=== PATIENT | female | born 1945 | race Caucasian/White ===

== ENCOUNTER → 2018-12-14 12:34 | Outpatient (CLI) | payer MEDICARE, OTHER, SELFPAY ==
--- NOTE | 2018-12-14 12:40 | DI.CT.S_ITS ---
PROCEDURE: CT CHEST WO CON INDICATIONS: pulmonary nodule surveilance TECHNIQUE: Noncontrast 2.0-2.5 mm thick sections acquired from the pulmonary apices to the posterior costophrenic angles. 7 mm thick coronal and sagittal MIP reformats were then acquired. A low radiation dose technique was utilized. COMPARISON: [facility], CT, THORAX WITHOUT CONTRAST, 02/27/2017, 14:47. [facility], CT, THORAX WITHOUT CONTRAST, 08/30/2017, 9:28. FINDINGS: Image quality: Diagnostic, given the low radiation dose technique. Lungs and pleura: There is redemonstration of largely groundglass 1.9 x 1.3 cm anterior left upper lobe pulmonary nodule. There is slight increase in attenuation since the prior study although the overall size is probably unchanged dating back to 02/27/17. No acute consolidation. Scattered subsegmental atelectasis and/or scarring. No pleural effusion or pneumothorax. Central airways appear grossly patent. Calcified granuloma in the left posterior sulcus, unchanged. 2 mm left upper lobe pulmonary nodule image 37 series 3 is unchanged and requires no further followup Mediastinum: Heart size is normal. Coronary artery calcifications are present. . No pericardial effusion. No mediastinal adenopathy by size criteria. Thoracic aorta and central pulmonary arteries are normal in size. Esophagus is normal in caliber. No hiatal hernia. Bones and chest wall: Partially visualized low attenuation nodule seen in the region of the right adrenal gland possibly an adenoma although not entirely included on the study technically indeterminate. Chronic left clavicle fracture. Calcific tendinitis seen in the left shoulder. Abdomen: Visualized upper abdomen solid organs and bowel loops appear normal in the absence of contrast. IMPRESSION: Overall, stable size of groundglass attenuation nodule involving the anterior left upper lobe. There is apparent slight increase in attenuation however this could be due to slice registration artifact, technically non-specific. Recommend continued surveillance with noncontrast chest CT in one year per consensus recommendations. (Indolent adenocarcinoma still cannot be excluded) Fleischner Society criteria for SUB-SOLID lung nodule followup. Solitary pure ground-glass nodules<6 mm (ground glass or part solid)No followup needed. 6 mm or larger (ground glass)CT at 6-12 months to confirm persistence, then CT every 2 years until 5 years.6 mm or larger (part solid)CT at 3-6 months to confirm persistence, then annual CT until 5 years if unchanged and solid component remains <6 mm. Multiple sub-solid nodules<6 mmCT at 3-6 months, then CT consider at 2 & 4 years for high risk patients. [address] at 3-6 months. Subsequent management based on most suspicious lesions. Recommendations do not apply to lung cancer screening, patients with immunosuppression, or patients with known primary cancer. Dictated by: Jacky Gonsalves M.D. on 12/14/2018 at 14:25 Approved by: Jacky Gonsalves M.D. on 12/14/2018 at 14:39
--- NOTE | 2018-12-14 12:40 | DI.CT.S_ITS ---
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 Additional oblique axial 3.0 mm sections acquired through the pharynx. 3 mm thick coronal and sagittal reformats were generated. For radiation dose reduction, the following was used: automated exposure control. COMPARISON: [facility], CT, SOFT TISSUE NECK W CONTRAST, 11/24/2016, 15:52. [facility], CT, CT CHEST WO CON, 12/14/2018, 12:45. FINDINGS: Image quality: Excellent. Lymph nodes: No enlarged lymph nodes seen throughout the neck. Vessels: Visualized vasculature appears patent. Neck spaces: Just inferior to the hyoid bone on the left, there is a low-density structure seen with an internal density is 61 Hounsfield units, with mass effect upon the hyoid bone itself, elevating it. This structure measures up to 1.9 cm transversely by 1.1 cm AP, with a craniocaudal extent of 1.5 cm. Overall, this is slightly smaller in size than on the prior examination. No new lesions can be seen. The oropharynx, nasopharynx, and pharynx demonstrate no mucosal lesions. The vocal cords, false vocal cords, pyriform sinuses, epiglottis, vallecula, and tongue base all appear normal. Glands: The parotid and submandibular glands appear normal. Thyroid gland demonstrates no significant CT abnormality. Miscellaneous: Visualized brain and orbits appear normal. Mild centrilobular emphysematous changes can be seen at the lung apices. There is a stable amount of groundglass opacity seen involving the left upper lobe anteriorly and laterally, which has not significantly changed in 2 years time since the 11/24/16 examination. Superficial soft tissues appear normal. Bones: No suspicious bony lesions. Visualized sinuses and mastoids appear unremarkable. IMPRESSION: There is a low-density ovoid supraglottic lesion seen on the left, which is smaller in size than in 2017. 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 Within the left upper lobe laterally, there is a subpleural focus of groundglass opacity. This has not changed in 2 years since the prior chest CT and is considered to be benign. Dictated by: Tommie Sandoval M.D. on 12/14/2018 at 12:18 Approved by: Tommie Sandoval M.D. on 12/14/2018 at 12:23
== END ==
PROVIDERS: Family Provider Family Medicine; PCP Family Medicine; Visit Provider Family Medicine
DX: R91.1 Solitary pulmonary nodule (principal); Q31.3 Laryngocele
CPT/HCPCS: 70491; 71250; Q9967

== ENCOUNTER → 2019-07-08 11:42 | Outpatient (CLI) | payer MEDICARE, OTHER, SELFPAY ==
--- NOTE | 2019-07-08 | DI.MG.S_ITS ---
BILATERAL DIGITAL SCREENING MAMMOGRAM 3D/2D WITH CAD: 07/08/2019 CLINICAL: Routine screening. Comparison is made to exams dated: 06/06/2017 mammogram, 06/03/2016 mammogram, and 05/08/2015 mammogram - [facility]. There are scattered fibroglandular elements in both breasts. Current study was also evaluated with a Computer Aided Detection (CAD) system. There are benign calcifications in both breasts. No significant masses, calcifications, or other findings are seen in either breast. There has been no significant interval change. IMPRESSION: There is no mammographic evidence of malignancy. A 1 year screening mammogram is recommended. This exam was interpreted at Station ID: [id number]. NOTE: For mammograms, a report in lay terms will be sent to the patient. Approximately 15% of breast malignancies will not be visualized mammographically. In the management of a palpable breast mass, a negative mammogram must not discourage biopsy of a clinically suspicious lesion. Electronically Signed By: Yonis guzman/grace:07/08/2019 14:16:49 letter sent: Normal Exam ACR BI-RADS Category 2: Benign Finding(s) 3342F
== END ==
PROVIDERS: PCP Family Medicine; Visit Provider Family Medicine
DX: Z12.31 Encounter for screening mammogram for malignant neoplasm of breast (principal)
CPT/HCPCS: 77063; 77067

== ENCOUNTER → 2020-11-12 11:29 | Outpatient (CLI) | payer MEDICARE, OTHER, SELFPAY ==
[2020-11-12 12:36] LABS: Add Manual Diff / Slide Review NO; Basophils Absolute Auto 100 /uL (0-100); Basophils Percent Auto 1.1 % (0-2); Eosinophils Absolute Auto 100 /uL (0-450); Eosinophils Percent Auto 1.3 % (2-4); Hematocrit 41.1 % (36-46); Hemoglobin 13.8 g/dL (12.0-16.0); Lymphocytes Absolute Auto 1800 /uL (1100-4500); Lymphocytes Percent Auto 31.1 % (25-40); Mean Corpuscular HGB Conc 33.7 % (30-36); Mean Corpuscular Hemoglobin 29.7 PG (26-34); Mean Corpuscular Volume 88.1 fL (80-100); Monocytes Absolute Auto 400 /uL (0-900); Monocytes Percent Auto 6.1 % (3-14); Neutrophils Absolute Auto 3600 /uL (1500-7000); Neutrophils Percent Auto 60.4 % (50-75); Platelet Count 274 X10^3/uL (150-400); Red Blood Cell Count 4.66 X10^6/uL (4.0-5.2); Red Cell Distribution Width 14.5 % (11.6-14.8); White Blood Cell Count 5.9 X10^3/uL (4.5-11.0)
[2020-11-12 13:07] LABS: Hemoglobin A1C% w Est Avg Glu 5.9 % (4.0-6.0)
[2020-11-12 13:13] LABS: Alanine Aminotransferase 21 IU/L (<35); Albumin 4.6 g/dL (3.5-5.0); Albumin Globulin Ratio 1.5 (1.0-2.8); Alkaline Phosphatase 98 U/L (38-126); Aspartate Aminotransferase 28 IU/L (14-36); BUN Creatinine Ratio 28.3 (6-22); Bilirubin Total 0.6 mg/dL (0.2-1.3); Blood Urea Nitrogen 26 mg/dL (7-17); Calcium 9.7 mg/dL (8.4-10.2); Carbon Dioxide 28 mmol/L (22-32); Chloride 96 mmol/L (98-107); Cholesterol 224 mg/dL (140-199); Estimated Glomerular Filt Rate > 60.0 mL/min (>60); Glucose 106 mg/dL (80-110); HDL Cholesterol 59 mg/dL (40-60); HEMOLYSIS < 15 (0-50); LDL Cholesterol Calculated 137 mg/dL (<100); Potassium 4.2 mmol/L (3.4-5.1); Sodium 131 mmol/L (137-145); Total Protein 7.6 g/dL (6.3-8.2); Triglycerides 141 mg/dL (35-150)
[2020-11-12 15:56] LABS: TSH w/ Reflex to FT4 1.62 uIU/mL (0.47-4.68)
== END ==
PROVIDERS: PCP Family Medicine; Referring Provider Family Medicine; Visit Provider Family Medicine
DX: E78.5 Hyperlipidemia, unspecified (principal); I10 Essential (primary) hypertension
CPT/HCPCS: 36415; 80053; 80061; 83036; 84443; 85025

== ENCOUNTER → 2021-05-11 09:27 | Outpatient (CLI) | payer MEDICARE, OTHER, SELFPAY ==
--- NOTE | 2021-05-11 09:31 | DI.CT.S_ITS ---
PROCEDURE: CT SOFT TISSUE NECK WO CON INDICATIONS: Laryngocele TECHNIQUE: Non-contrast 3.0 mm axial sections acquired from the sella to the aortic arch. Additional oblique axial 3.0 mm sections acquired through the pharynx. 3 mm thick coronal and sagittal reformats were generated. For radiation dose reduction, the following was used: automated exposure control. COMPARISON: [facility], CT, CT SOFT TISSUE NECK W CON, 12/14/2018, 12:45. FINDINGS: Image quality: Lack of IV contrast precludes definitive evaluation of solid and vascular structures. Lymph nodes: No enlarged lymph nodes seen throughout the neck. Vessels: Non-opacified vessels appear normal in caliber. Neck spaces: In the left paraglottic space, there is a low-density lesion extending through the thyrohyoid membrane measuring 58 Hounsfield units and 1.5 x 2.6 by 1.5 cm, slightly larger than the prior exam 1.9 x 1.1 x 1.5 cm The oropharynx, nasopharynx, and pharynx demonstrate no mucosal lesions. The vocal cords, false vocal cords, pyriform sinuses, epiglottis, vallecula, and tongue base all appear normal. Extramucosal spaces appear unremarkable. Glands: The parotid and submandibular glands appear normal, without stones. Thyroid gland unremarkable . Miscellaneous: Visualized brain and orbits appear normal. Lung apices appear clear. Superficial soft tissues appear normal. Multilevel degenerative disc disease and arthropathy in the cervical spine results in moderate central stenosis at C4-5 and C5-6, similar to the prior exam IMPRESSION: 1. Low-density paraglottic lesion with imaging characteristics consistent with fluid filled laryngocele. Given the increase in size, consider MRI confirmation. 2. Multilevel degenerative disc disease and arthropathy results in moderate central stenosis at C4-5 and C5-6. Approved by: Igor Schafer M.D. on 05/11/2021 at 13:12
--- NOTE | 2021-05-11 09:31 | DI.CT.S_ITS ---
PROCEDURE: CT CHEST WO CON INDICATIONS: 2 year surveillence exam TECHNIQUE: Noncontrast 5 mm thick sections acquired from the pulmonary apices to the posterior costophrenic angles. 1 mm lung window, 5 mm thick coronal and sagittal and 7 mm axial MIP reformats were then acquired. For radiation dose reduction, the following was used: automated exposure control, adjustment of mA and/or kV according to patient size. COMPARISON: [facility], CT, THORAX WITHOUT CONTRAST, 02/27/2017, 14:47. [facility], CT, THORAX WITHOUT CONTRAST, 08/30/2017, 9:28. [facility], CT, CT CHEST WO CON, 12/14/2018, 12:45. FINDINGS: Lungs: Redemonstrated subpleural ground-glass focal opacity in the anterior left upper lobe appears grossly stable measuring 2.1 x 1.5 cm previously 2.2 x 1.4 cm (and 1.7 x 1.4 cm on 02/27/17). Scattered subsegmental atelectasis and/or scarring. No focal consolidation. Presumed calcified granuloma in the posterior left lower lobe is unchanged. Pleura: No pleural effusion or pneumothorax. Heart: Heart size is normal. No pericardial effusion. Mild coronary atheromatous calcifications. Chest nodes: Normal. Thyroid gland: Negative. Aorta: Normal in size. Pulmonary arteries: Normal. Esophagus: Normal. Upper abdomen: Unchanged presumed low-attenuation large right adrenal adenoma. Gallbladder surgically absent. Bones: Normal. IMPRESSION: Overall, indolent increase in size of focal ground-glass opacity involving the left upper lobe dating back to 02/27/17. Indolent neoplasm such as adenocarcinoma in situ cannot be excluded, as previously discussed. Consider oncology consultation, and continued surveillance with CT chest as necessary. Dictated by: Jacky Gonsalves M.D. on 05/11/2021 at 13:01 Approved by: Jacky Gonsalves M.D. on 05/11/2021 at 13:13
== END ==
PROVIDERS: PCP Family Medicine; Referring Provider Family Medicine; Visit Provider Family Medicine
DX: Q31.3 Laryngocele (principal); R91.1 Solitary pulmonary nodule; M50.321 Other cervical disc degeneration at C4-C5 level; M48.02 Spinal stenosis, cervical region; M47.812 Spondylosis without myelopathy or radiculopathy, cervical region; F17.200 Nicotine dependence, unspecified, uncomplicated
CPT/HCPCS: 70490; 71250

== ENCOUNTER 2021-08-26 06:44 | Emergency (ER) | payer MEDICARE, OTHER, SELFPAY ==
[2021-08-26] VITALS (17 sets, daily range): BP systolic 123–177; BP diastolic 57–82; PULSE 63–82; RESP 18–20; TEMP 36.3–36.6; O2SAT 94–100; BMI 23.8
--- NOTE | 2021-08-26 07:18 | ED_ITS ---
HPI - Back Pain/Injury General Chief Complaint: Back Pain/Injury Stated Complaint: abd pain/nausea/chills x4 days Time Seen by Provider: 08/26/21 07:05 Source: patient History of Present Illness HPI Narrative: 75F daily smoker with history of HTN, hyperlipidemia, and a thyroid mass presents with her and the chief complaint of a C of symptoms for the past few days. She states it started with some back pain when she lifted a heavy object in likely exacerbated her known sciatica. She has a reproducible musculoskeletal type pain in her right lumbar region is made worse with motion and improves with rest. She denies any loss of control of bowel or bladder. She denies any numbness, tingling or weakness. She denies any lower extremity symptoms whatsoever. Additionally, she has developed over the past few days some right lower quadrant pain which is at times very severe at other times seems to light and some. She has been nauseated but has not vomited. She denies any constipation, she is still passing gas. She denies any urinary complaints such as dysuria, frequency or urgency. She denies fever but has had chills. She generally feels unwell Related Data Previous Rx's Medication Instructions Recorded atorvastatin 40 mg tablet (Lipitor) 40 mg PO HS #90 tab 10/18/19 mometasone 0.1 % topical solution See Rx Instructions .ROUTE .BID 11/12/20 #30 ml lisinopril 20 1 tab PO DAILY #90 tab 03/01/21 mg-hydrochlorothiazide 25 mg tablet lorazepam 1 mg tablet 1 mg PO ONCE PRN #1 tab 05/04/21 hydrocodone 5 mg-acetaminophen 325 1 tab PO Q4-6H PRN #10 tab 08/26/21 mg tablet ondansetron 4 mg disintegrating 4 mg PO TID-QID PRN #10 tab 08/26/21 tablet Allergies Allergy/AdvReac Type Severity Reaction Status Date / Time cephalexin [From KEFLEX] Allergy Mild flu like Verified 11/12/20 10:55 symptoms diphenhydramine Allergy Mild Verified 11/12/20 10:55 [From BENADRYL-D ALLERGY-SINUS] Penicillins [PENICILLINS] Allergy Mild Verified 11/12/20 10:55 phenylephrine Allergy Mild Verified 11/12/20 10:55 [From BENADRYL-D ALLERGY-SINUS] prilocaine [PRILOCAINE] AdvReac Unknown Verified 11/12/20 10:55 Review of Systems Review of Systems Narrative: GENERAL: See HPI HEENT: Denies sinus pain, ear pain, sore throat, difficulty swallowing, dizziness. RESPIRATORY: Denies dyspnea, cough, wheezing, hemoptysis, sputum. CARDIOVASCULAR: Denies chest pain, palpitations, orthopnea, edema, GASTROINTESTINAL: See HPI : Denies dysuria, frequency, incontinence, hematuria, urinary retention. MUSCULOSKELETAL: denies weakness, joint pain, or bony pain SKIN: Denies rash, skin lesions, or other NEUROLOGIC: Denies weakness, headache, numbness, change in speech, confusion, seizures, incoordination. PSYCHIATRIC: No concerning psychosocial issues. 12 point review of systems is negative except for those stated above Patient History Medical History Anxiety Chicken pox (1951) Chronic back pain (2006) Clavicle fracture (1980) Colon polyps (2007) Depression (1999) Endometriosis (1980) Heart murmur (1947) Hoarseness (01/04/16) Hyperlipidemia Hypertension (1999) Insomnia Lumbar facet joint syndrome Lumbar radiculopathy, right Mumps Ovarian tumor (2007) Plantar warts (1973) Sciatica, right side Vocal cord polyp (2014) Surgical History Anesthesia complication History of bilateral salpingo-oophorectomy (BSO) History of knee surgery (2006) History of oophorectomy, unilateral (2007) Status post hysterectomy (1980) Status post laparoscopic cholecystectomy (2001) Family History Father Stroke Grandfather Heart disease Brother MVA (motor vehicle accident) Quadriplegia, post-traumatic Grandmother No problems noted. Mother MVA (motor vehicle accident) Grandfather No problems noted. Grandmother No problems noted. Family/Other No problems noted. Social History marital status: Smoking Status: Current every day smoker alcohol intake: current substance use type: does not use Smoking Status: Current every day smoker Substance Use Type: does not use Exam Narrative Exam Narrative: GENERAL: [75] year old patient appears stated age. Well-developed patient, in mild distress. HEAD: Atraumatic. Normocephalic. EYES: Pupils equal round and reactive. Extraocular motions intact. No scleral icterus. No injection or drainage. ENT: Nose without bleeding, purulent drainage. Throat without erythema, tonsillar hypertrophy or exudate. Airway patent. NECK: Trachea midline. Non tender CARDIOVASCULAR: Regular rate and rhythm without murmurs, gallops, or rubs. RESPIRATORY: Clear to auscultation. Breath sounds equal bilaterally. No wheezes, rales, or rhonchi. GASTROINTESTINAL: Abdomen soft, though tender in RLQ, nondistended. EXTREMITIES: No edema or joint tenderness. BACK: Nontender without deformity or crepitance. No flank tenderness. NEURO: AOx3. SKIN: No rash or erythema of visible areas Initial Vital Signs Initial Vital Signs: Vital Signs Temperature 97.4 F L 08/26/21 07:03 Pulse Rate 82 08/26/21 07:03 Respiratory Rate 20 08/26/21 07:03 Blood Pressure 165/82 H 08/26/21 07:03 Pulse Oximetry 98 08/26/21 07:03 Course Course Course Narrative: Patient's pain has been a bit colicky in nature and moved without obvious provocation. Her symptoms are well controlled here in the department she is tolerating orals. Labs and imaging are very reassuring there is no evidence of any surgical emergency such as bowel obstruction or appendicitis, nor any kidney stone or other no obvious finding. There is some mention of a slightly increased diameter of common bile duct, ultrasound shows no other significant findings and labs are very reassuring, no MRCP indicated at this point time. Fu rthermore, patient has no right upper quadrant pain. She has been given extensive return precautions and questions have been answered to her apparent satisfaction Orders Ordered: ED Orders 08/26/21 06:48 EKG-12 Lead Stat 08/26/21 07:30 Complete Blood Count AUTO DIFF Stat Comprehensive Metabolic Panel Stat Lactate (Lactic Acid) Stat Lipase Stat 08/26/21 08:02 CT abdomen pelvis w con Stat 08/26/21 10:01 US abdomen limited Stat Discontinued Medications Hydromorphone HCl (Hydromorphone 0.5 Mg Inj) 0.5 mg IV NOW ONE Stop: 08/26/21 07:45 Last Admin: 08/26/21 07:54 Dose: 0.5 mg Documented by: CATALINA Sodium Chloride (Normal Saline 0.9%) 500 mls @ 1,000 mls/hr IV BOLUS ONE Stop: 08/26/21 08:13 Last Infusion: 08/26/21 09:28 Dose: 0 mls/hr Documented by: Admin: 08/26/21 07:54 Dose: 1,000 mls/hr Documented by: CATALINA Ondansetron HCl (Ondansetron 4 Mg/2 Ml Inj) 4 mg IV NOW ONE Stop: 08/26/21 07:45 Last Admin: 08/26/21 07:54 Dose: 4 mg Documented by: CATALINA Vital Signs Vital signs: Vital Signs - 8 hr 08/26/21 07:03 08/26/21 07:46 08/26/21 07:48 Temperature 97.4 F L 97.9 F Pulse Rate 82 74 68 Respiratory Rate 20 18 Blood Pressure 165/82 H 167/77 H Pulse Oximetry 98 99 99 08/26/21 08:00 08/26/21 08:30 08/26/21 09:00 Temperature Pulse Rate 73 66 65 Respiratory Rate Blood Pressure Pulse Oximetry 98 94 97 08/26/21 09:26 08/26/21 09:46 08/26/21 09:47 Temperature Pulse Rate 67 67 Respiratory Rate Blood Pressure 177/74 H Pulse Oximetry 99 97 08/26/21 10:00 08/26/21 10:01 Temperature Pulse Rate 63 64 Respiratory Rate Blood Pressure 148/69 H Pulse Oximetry 95 97 MDM - Back Pain/Injury Lab Data Result diagrams: 08/26/21 07:30 08/26/21 07:30 Labs: Lab Results 08/26/21 08/26/21 08/26/21 Range/Units 07:30 07:30 07:30 WBC 10.4 (4.5-11.0) X10^3/uL RBC 5.02 (4.0-5.2) X10^6/uL Hgb 14.4 (12.0-16.0) g/dL Hct 42.5 (36-46) % MCV 84.7 (80-100) fL MCH 28.7 (26-34) PG MCHC 33.9 (30-36) % RDW 15.0 H (11.6-14.8) % Plt Count 282 (150-400) X10^3/uL Neut % (Auto) 83.4 H (50-75) % Lymph % (Auto) 11.6 L (25-40) % Mccracken % (Auto) 3.4 (3-14) % Eos % (Auto) 0.9 L (2-4) % Baso % (Auto) 0.7 (0-2) % Neut # (Auto) 8700 H (1072-7990) /uL Lymph # (Auto) 1200 (8293-9518) /uL Mccracken # (Auto) 400 (0-900) /uL Eos # (Auto) 100 (0-450) /uL Baso # (Auto) 100 (0-100) /uL Sodium 129 L (137-145) mmol/L Potassium 3.6 (3.4-5.1) mmol/L Chloride 92 L (98-107) mmol/L Carbon Dioxide 31 (22-32) mmol/L BUN 15 (7-17) mg/dL Creatinine 0.84 (0.52-1.04) mg/dL Estimated GFR > 60.0 (>60) mL/min BUN/Creatinine Ratio 17.9 (6-22) Glucose 130 H (80-110) mg/dL Lactate 1.2 (0.7-2.1) mmol/L Calcium 9.9 (8.4-10.2) mg/dL Total Bilirubin 1.0 (0.2-1.3) mg/dL AST 23 (14-36) IU/L ALT 17 (<35) IU/L Alkaline Phosphatase 83 (38-126) U/L Total Protein 7.6 (6.3-8.2) g/dL Albumin 4.7 (3.5-5.0) g/dL Globulin 2.9 (1.7-4.1) g/dL Albumin/Globulin Ratio 1.6 (1.0-2.8) Lipase 97 (23-300) U/L Urine Dip Bedside Urine Glucose Negative Bedside Urine Bilirubin - Negative Bedside Urine Ketone - Negative Urine Specific [place] 1.015 Bedside Urine Occult Blood - Negative Bedside Urine pH 6.0 Bedside Urine Protein - Negative Bedside Urine Urobilinogen - Negative Bedside Urine Nitrite - Negative Bedside Urine Leukocytes - Negative Esterase Imaging Data US - abdomen: Radiologist's Impression: Launch?Image [address] [address] [address] Scan Report Signed Patient: Chaya Law MR#: [id number] : 1945 Acct:[id number] Age/Sex: 75 / F Date of Service: 08/26/21 Loc: ED Accession Number: [id number] ?? Procedure: CT abdomen pelvis w con Ordering Provider: Rito Batista D.O. PROCEDURE:? CT ABDOMEN PELVIS W CON ? INDICATIONS:? severe RLQ pain ? TECHNIQUE:? After the administration of oral and IV contrast, axial sections were acquired from the lung bases to the pubic symphysis.? Coronal and sagittal reformats were performed.? For radiation dose reduction, the following was used:? automated exposure control, adjustment of mA and/or kV according to patient size. ? COMPARISON:? [facility], CT, THORAX WITHOUT CONTRAST, 02/27/2017, 14:47.? [facility], CT, THORAX WITHOUT CONTRAST, 08/30/2017, 9:28.? [facility], CT, CT CHEST WO CON, 05/11/2021, 9:36. ? FINDINGS:? Image quality:? Excellent.? ? Lung bases:? Unremarkable.? ? Heart:? Heart is normal in size. ? ? ABDOMEN: Liver:? No mass lesion. Gallbladder:? Surgically absent Biliary ducts:? There is mild biliary ductal dilatation, with the common bile duct measuring up to 0.9 cm, slightly increased from the prior study.? No calcified common duct stones or discrete obstructing mass identified. Pancreas:? Unremarkable.? ? Spleen:? Normal in size.? ? Adrenal Glands:? There is a right adrenal mass measuring up to 3.7 x 3.0 cm in transverse dimension.? This demonstrated attenuation values on the prior CT consistent with a lipid rich adenoma.? Kidneys and Ureters:? No hydronephrosis.? There is a small hyperdense cysts or m ass within the left kidney measuring up to 0.8 cm on series 2, image 31.? ? ? Stomach and Bowel:? Stomach, small bowel loops, and colon are normal in caliber and wall thickness.? The appendix is normal in appearance.? There are few colonic diverticula without acute diverticulitis.? Peritoneum:? No abnormal intraperitoneal fluid.? No free air.? ? Ventral Wall: ? No hernia.? Abdominal Nodes:? No retroperitoneal or mesenteric adenopathy by size criteria.? Vessels:? Aorta and inferior vena cava are normal in size.? ? PELVIS: Pelvic Organs:? The uterus is surgically absent.? ? Bladder:? Unremarkable.? ? Pelvic Nodes: No enlarged lymph nodes.? Miscellaneous: No inguinal hernias are seen. ? ? ? Bones:? Visualized osseous structures demonstrate no suspicious focal lesions. ? ? IMPRESSION:? ? 1. No evidence of appendicitis. ? 2. Increased biliary ductal dilatation without a calcified obstructing stone or discrete obstructing mass visualized.? Recommend correlation clinically including with laboratory values.? Further evaluation may be obtained with ultrasound or MRCP if clinically indicated. ? 3. Right adrenal mass redemonstrated with attenuation values on the prior CT consistent with a lipid rich adenoma.? This appears slightly increased in size compared to the 2017 studies on which it measured approximately 3.2 x 2.4 cm. ? 4. Small hyperdense cyst or mass within the left kidney.? Recommend initial further evaluation with ultrasound.? ? Dictated by: Milad Garcia M.D. on 08/26/2021 at 8:53 ? ? Approved by: Milad Garcia M.D. on 08/26/2021 at 9:09 Discharge Plan Departure Patient Disposition: Home Clinical Impression: Abdominal pain Activity Restrictions/Additional Instructions: *You have been diagnosed with [abdominal pain. Your history, physical exam, labs and imaging were all very reassuring, and as we discussed there is no evidence of any surgical emergency or diagnosis which would require hospitalization. *What to do: *Please continue to take your regular medications as directed. [x ] New medication prescriptions sent to your pharmacy: [ ] [ ] New medication written as a paper prescription [ ] No new medications given *Please follow up with your primary care provider in 2-3 days, call for an appointment. Let them know you were seen in the Emergency Department and that we ask that you be seen in follow up. We will electronically transmit a record of today's note if your PCP is in our system * also, as we discussed, please consider a clear liquid diet for the next 48 hours and then advance slowly, has tolerated *Return to Emergency Department if you should have any new, worsening or concerning symptoms, such as [fever greater than 101 F, shaking chills, worsening pain, persistent vomiting or other bothersome symptoms] Prescriptions: New hydrocodone-acetaminophen 5-325 mg tablet 1 tab PO Q4-6H PRN (Reason: pain) Qty: 10 0RF ondansetron 4 mg tablet,disintegrating 4 mg PO TID-QID PRN (Reason: nausea and vomiting) Qty: 10 0RF No Action mometasone 0.1 % solution See Rx Instructions .ROUTE .BID Qty: 30 1RF Rx Instructions: INSTILL 3 TO 4 DROPS INTO AFFECTED EARS .BID; atorvastatin [Lipitor] 40 mg tablet 40 mg PO HS Qty: 90 2RF lisinopril-hydrochlorothiazide 20-25 mg tablet 1 tab PO DAILY Qty: 90 2RF lorazepam 1 mg tablet 1 mg PO ONCE PRN (Reason: anxiety) Qty: 1 0RF Rx Instructions: TAKE 1 TABLET 1 HOUR PRIOR TO PROCEDURE/IMAGING Referrals: Michel Hanson MD [Primary Care Provider] -
[2021-08-26 07:45] LABS: Add Manual Diff / Slide Review NO; Basophils Absolute Auto 100 /uL (0-100); Basophils Percent Auto 0.7 % (0-2); Eosinophils Absolute Auto 100 /uL (0-450); Eosinophils Percent Auto 0.9 % (2-4); Hematocrit 42.5 % (36-46); Hemoglobin 14.4 g/dL (12.0-16.0); Lymphocytes Absolute Auto 1200 /uL (1100-4500); Lymphocytes Percent Auto 11.6 % (25-40); Mean Corpuscular HGB Conc 33.9 % (30-36); Mean Corpuscular Hemoglobin 28.7 PG (26-34); Mean Corpuscular Volume 84.7 fL (80-100); Monocytes Absolute Auto 400 /uL (0-900); Monocytes Percent Auto 3.4 % (3-14); Neutrophils Absolute Auto 8700 /uL (1500-7000); Neutrophils Percent Auto 83.4 % (50-75); Platelet Count 282 X10^3/uL (150-400); Red Blood Cell Count 5.02 X10^6/uL (4.0-5.2); White Blood Cell Count 10.4 X10^3/uL (4.5-11.0)
[2021-08-26 07:54] LABS: Alanine Aminotransferase 17 IU/L (<35); Albumin 4.7 g/dL (3.5-5.0); Albumin Globulin Ratio 1.6 (1.0-2.8); Alkaline Phosphatase 83 U/L (38-126); Aspartate Aminotransferase 23 IU/L (14-36); BUN Creatinine Ratio 17.9 (6-22); Blood Urea Nitrogen 15 mg/dL (7-17); Calcium 9.9 mg/dL (8.4-10.2); Carbon Dioxide 31 mmol/L (22-32); Chloride 92 mmol/L (98-107); Estimated Glomerular Filt Rate > 60.0 mL/min (>60); Globulin 2.9 g/dL (1.7-4.1); Glucose 130 mg/dL (80-110); HEMOLYSIS < 15 (0-50); Lipase 97 U/L (23-300); Potassium 3.6 mmol/L (3.4-5.1); Sodium 129 mmol/L (137-145); Total Protein 7.6 g/dL (6.3-8.2)
[2021-08-26] MEDS: ONDANSETRON 4 MG/2 ML INJ IV (07:54)
[2021-08-26] MEDS: HYDROMORPHONE 0.5 MG INJ IV (07:54)
[2021-08-26] MEDS: SODIUM CHLORIDE 0.9% 500 ML 1000 ML IV (07:54)
[2021-08-26 07:55] LABS: Lactate (Lactic Acid) 1.2 mmol/L (0.7-2.1)
--- NOTE | 2021-08-26 08:02 | DI.CT.S_ITS ---
PROCEDURE: CT ABDOMEN PELVIS W CON INDICATIONS: severe RLQ pain TECHNIQUE: After the administration of oral and IV contrast, axial sections were acquired from the lung bases to the pubic symphysis. Coronal and sagittal reformats were performed. For radiation dose reduction, the following was used: automated exposure control, adjustment of mA and/or kV according to patient size. COMPARISON: [facility], CT, THORAX WITHOUT CONTRAST, 02/27/2017, 14:47. [facility], CT, THORAX WITHOUT CONTRAST, 08/30/2017, 9:28. [facility], CT, CT CHEST WO CON, 05/11/2021, 9:36. FINDINGS: Image quality: Excellent. Lung bases: Unremarkable. Heart: Heart is normal in size. ABDOMEN: Liver: No mass lesion. Gallbladder: Surgically absent Biliary ducts: There is mild biliary ductal dilatation, with the common bile duct measuring up to 0.9 cm, slightly increased from the prior study. No calcified common duct stones or discrete obstructing mass identified. Pancreas: Unremarkable. Spleen: Normal in size. Adrenal Glands: There is a right adrenal mass measuring up to 3.7 x 3.0 cm in transverse dimension. This demonstrated attenuation values on the prior CT consistent with a lipid rich adenoma. Kidneys and Ureters: No hydronephrosis. There is a small hyperdense cysts or mass within the left kidney measuring up to 0.8 cm on series 2, image 31. Stomach and Bowel: Stomach, small bowel loops, and colon are normal in caliber and wall thickness. The appendix is normal in appearance. There are few colonic diverticula without acute diverticulitis. Peritoneum: No abnormal intraperitoneal fluid. No free air. Ventral Wall: No hernia. Abdominal Nodes: No retroperitoneal or mesenteric adenopathy by size criteria. Vessels: Aorta and inferior vena cava are normal in size. PELVIS: Pelvic Organs: The uterus is surgically absent. Bladder: Unremarkable. Pelvic Nodes: No enlarged lymph nodes. Miscellaneous: No inguinal hernias are seen. Bones: Visualized osseous structures demonstrate no suspicious focal lesions. IMPRESSION: 1. No evidence of appendicitis. 2. Increased biliary ductal dilatation without a calcified obstructing stone or discrete obstructing mass visualized. Recommend correlation clinically including with laboratory values. Further evaluation may be obtained with ultrasound or MRCP if clinically indicated. 3. 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 This appears slightly increased in size compared to the 2017 studies on which it measured approximately 3.2 x 2.4 cm. 4. Small hyperdense cyst or mass within the left kidney. Recommend initial further evaluation with ultrasound. Dictated by: Milad Garcia M.D. on 08/26/2021 at 8:53 Approved by: Milad Garcia M.D. on 08/26/2021 at 9:09
--- NOTE | 2021-08-26 10:01 | DI.US.S_ITS ---
PROCEDURE: US ABDOMEN LIMITED INDICATIONS: DILATED CBD ON CT TECHNIQUE: Real-time focused scanning was performed of the abdomen, with image documentation. COMPARISON: [facility], CT, CT ABDOMEN PELVIS W CON, 08/26/2021, 8:12. FINDINGS: Liver is normal in size and homogeneous echotexture. Gallbladder is surgically absent. Common bile duct is at the upper limits of normal measuring 10.0 millimeters. Pancreas is sonographically normal. IMPRESSION: Common bile duct the upper limits of normal in diameter measuring 10 millimeters. Recommend correlation with laboratory data to exclude biliary obstruction. If there is clinical concern for biliary obstruction, MRCP should be considered for further evaluation. Dictated by: Anastasiia Guerrier MD, PhD on 08/26/2021 at 10:50 Approved by: Anastasiia Guerrier MD, PhD on 08/26/2021 at 10:52
[2021-08-26] MEDS: ONDANSETRON 4 MG ODT SL (11:26)
== END 2021-08-26 11:32 | disposition home or self-care (01) ==
PROVIDERS: Emergency Medicine; Emergency Provider Emergency Medicine; PCP Family Medicine
DX: M54.50 Low back pain, unspecified (principal); R10.31 Right lower quadrant pain; R11.0 Nausea; I10 Essential (primary) hypertension; F17.210 Nicotine dependence, cigarettes, uncomplicated
CPT/HCPCS: 36415; 74177; 76705; 80053; 81003; 83605; 83690; 85025; 93005; 96361; 96374; 96375; 99284; J1170; J2405

== ENCOUNTER 2021-08-28 14:27 | Emergency (ER) | payer MEDICARE, OTHER, SELFPAY ==
[2021-08-28] VITALS (7 sets, daily range): BP systolic 176–215; BP diastolic 83–97; PULSE 69–79; RESP 16; TEMP 36.4; O2SAT 97–99; BMI 23.6
--- NOTE | 2021-08-28 14:33 | ED_ITS ---
HPI - Abdominal Pain General Chief Complaint: Abdominal Pain Stated Complaint: abdominal pain, getting worse Time Seen by Provider: 08/28/21 14:30 History of Present Illness HPI narrative: 75F daily smoker with history of HTN, hyperlipidemia, and a thyroid mass presents with her and the chief complaint?of ongoing abdominal and RLQ / flank pain which brought her in a few days ago. She had a thorough exam including reassuring labs and CT without significant findings. She does have a history of sciatica on the right side and states that her symptoms started when she was lifting heavy objects and reaching down while twisting with her left arm and she felt a sudden pain in her lower back that wraps around her hip a bit. She states that that pain has been rather persistent and not improved by much in the way of anything we have done thus far. Additionally she has had poor appetite and felt very gassy with decreased bowel movements for the past few days. She denies any fever chills. She has been nauseated and has had a few episodes of vomiting. She denies any numbness or tingling in her groin, has no loss of control of bowel or bladder. Related Data Previous Rx's Medication Instructions Recorded atorvastatin 40 mg tablet (Lipitor) 40 mg PO HS #90 tab 10/18/19 mometasone 0.1 % topical solution See Rx Instructions .ROUTE .BID 11/12/20 #30 ml lisinopril 20 1 tab PO DAILY #90 tab 03/01/21 mg-hydrochlorothiazide 25 mg tablet lorazepam 1 mg tablet 1 mg PO ONCE PRN #1 tab 05/04/21 hydrocodone 5 mg-acetaminophen 325 1 tab PO Q4-6H PRN #10 tab 08/26/21 mg tablet ondansetron 4 mg disintegrating 4 mg PO TID-QID PRN #10 tab 08/26/21 tablet ketorolac 10 mg tablet 10 mg PO Q6H PRN #14 tab 08/28/21 methylprednisolone 4 mg tablets in See Rx Instructions .ROUTE 08/28/21 a dose pack (Medrol (Telly)) .COMPLEX #21 ea Allergies Allergy/AdvReac Type Severity Reaction Status Date / Time cephalexin [From KEFLEX] Allergy Mild flu like Verified 11/12/20 10:55 symptoms diphenhydramine Allergy Mild Verified 11/12/20 10:55 [From BENADRYL-D ALLERGY-SINUS] Penicillins [PENICILLINS] Allergy Mild Verified 11/12/20 10:55 phenylephrine Allergy Mild Verified 11/12/20 10:55 [From BENADRYL-D ALLERGY-SINUS] prilocaine [PRILOCAINE] AdvReac Unknown Verified 11/12/20 10:55 Review of Systems Review of Systems Narrative: GENERAL: Denies chills, fatigue, malaise, fever, sweats. HEENT: Denies sinus pain, ear pain, sore throat, difficulty swallowing, dizziness. RESPIRATORY: Denies dyspnea, cough, wheezing, hemoptysis, sputum. CARDIOVASCULAR: Denies chest pain, palpitations, orthopnea, edema, GASTROINTESTINAL: See HPI : Denies dysuria, frequency, incontinence, hematuria, urinary retention. MUSCULOSKELETAL: see HPI SKIN: Denies rash, skin lesions, or other NEUROLOGIC: Denies weakness, headache, numbness, change in speech, confusion, seizures, incoordination. PSYCHIATRIC: No concerning psychosocial issues. 12 point review of systems is negative except for those stated above Patient History Medical History Anxiety Chicken pox (1951) Chronic back pain (2006) Clavicle fracture (1980) Colon polyps (2007) Depression (1999) Endometriosis (1980) Heart murmur (1947) Hoarseness (01/04/16) Hyperlipidemia Hypertension (1999) Insomnia Lumbar facet joint syndrome Lumbar radiculopathy, right Mumps Ovarian tumor (2007) Plantar warts (1973) Sciatica, right side Vocal cord polyp (2014) Surgical History Anesthesia complication History of bilateral salpingo-oophorectomy (BSO) History of knee surgery (2006) History of oophorectomy, unilateral (2007) Status post hysterectomy (1980) Status post laparoscopic cholecystectomy (2001) Family History Father Stroke Grandfather Heart disease Brother MVA (motor vehicle accident) Quadriplegia, post-traumatic Grandmother No problems noted. Mother MVA (motor vehicle accident) Grandfather No problems noted. Grandmother No problems noted. Family/Other No problems noted. Social History marital status: Smoking Status: Current every day smoker alcohol intake: current substance use type: does not use Smoking Status: Current every day smoker Substance Use Type: does not use Exam Narrative Exam Narrative: GENERAL: [72 year old patient appears stated age. Well-developed patient, in mild distress. HEAD: Atraumatic. Normocephalic. EYES: Pupils equal round and reactive. Extraocular motions intact. No scleral icterus. No injection or drainage. ENT: Nose without bleeding, purulent drainage. Throat without erythema, tonsillar hypertrophy or exudate. Airway patent. NECK: Trachea midline. Non tender CARDIOVASCULAR: Regular rate and rhythm without murmurs, gallops, or rubs. RESPIRATORY: Clear to auscultation. Breath sounds equal bilaterally. No wheezes, rales, or rhonchi. GASTROINTESTINAL: Abdomen soft, non-tender, nondistended. No evidence of hernia no, no localized pain EXTREMITIES: No edema or joint tenderness. BACK: Nontender without deformity or crepitance. No flank tenderness. No saddle anesthesia, decreased sensation or decreased reflex NEURO: AOx3. SKIN: No rash or erythema of visible areas Initial Vital Signs Initial Vital Signs: Vital Signs Pulse Rate 75 08/28/21 14:37 Blood Pressure 215/97 H 08/28/21 14:37 Pulse Oximetry 98 08/28/21 14:37 Course Orders Ordered: Discontinued Medications Bisacodyl (Bisacodyl 10 Mg Supp) 10 mg ID NOW ONE Stop: 08/28/21 15:31 Last Admin: 08/28/21 15:44 Dose: 10 mg Documented by: JANINA Dexamethasone (Dexamethasone 10 Mg/Ml Vial) 10 mg IV NOW ONE Stop: 08/28/21 15:31 Last Admin: 08/28/21 15:44 Dose: 10 mg Documented by: JANINA Sodium Chloride (Normal Saline 0.9%) 1,000 mls @ 150 mls/hr IV CONT BRENDON Last Admin: 08/28/21 15:44 Dose: 150 mls/hr Documented by: JANINA Ketorolac Tromethamine (Ketorolac 30 Mg/Ml Vial) 15 mg IV NOW ONE Stop: 08/28/21 15:31 Last Admin: 08/28/21 15:44 Dose: 15 mg Documented by: JANINA Magnesium Citrate (Magnesium Citrate 300 Ml Solution) 300 ml PO NOW ONE Stop: 08/28/21 17:36 Last Admin: 08/28/21 17:38 Dose: 300 ml Documented by: JANINA Reevaluation(s) Reevaluation #1: patient has complete resolution of back pain after above stated therapies. She's yet to move her bowels and states she still has some pain in her RLQ which continues to be improved with hip flexed. We have discussed an enema which she will gladly accept. Vital Signs Vital signs: Vital Signs - 8 hr 08/28/21 14:37 08/28/21 14:39 08/28/21 14:45 Temperature 97.6 F Pulse Rate 75 72 70 Respiratory Rate 16 Blood Pressure 215/97 H 215/97 H 178/84 H Pulse Oximetry 98 97 99 08/28/21 15:07 08/28/21 15:30 Temperature Pulse Rate 69 79 Respiratory Rate Blood Pressure Pulse Oximetry 98 98 MDM - Abdominal Pain Lab Data Result diagrams: 08/28/21 15:00 08/28/21 15:00 Labs: Lab Results 08/28/21 08/28/21 08/28/21 Range/Units 15:00 15:00 15:55 WBC 10.4 (4.5-11.0) X10^3/uL RBC 5.02 (4.0-5.2) X10^6/uL Hgb 14.7 (12.0-16.0) g/dL Hct 42.1 (36-46) % MCV 83.8 (80-100) fL MCH 29.2 (26-34) PG MCHC 34.8 (30-36) % RDW 15.4 H (11.6-14.8) % Plt Count 289 (150-400) X10^3/uL Neut % (Auto) 86.0 H (50-75) % Lymph % (Auto) 9.0 L (25-40) % [place] % (Auto) 3.2 (3-14) % Eos % (Auto) 0.4 L (2-4) % Baso % (Auto) 1.4 (0-2) % Neut # (Auto) 9000 H (0905-8735) /uL Lymph # (Auto) 900 L (2253-3045) /uL [place] # (Auto) 300 (0-900) /uL Eos # (Auto) 0 (0-450) /uL Baso # (Auto) 100 (0-100) /uL Sodium 127 L (137-145) mmol/L Potassium 3.3 L (3.4-5.1) mmol/L Chloride 88 L (98-107) mmol/L Carbon Dioxide 31 (22-32) mmol/L BUN 19 H (7-17) mg/dL Creatinine 0.92 (0.52-1.04) mg/dL Estimated GFR 59.8 L (>60) mL/min BUN/Creatinine Ratio 20.7 (6-22) Glucose 107 (80-110) mg/dL Calcium 9.9 (8.4-10.2) mg/dL Total Bilirubin 1.3 (0.2-1.3) mg/dL AST 28 (14-36) IU/L ALT 19 (<35) IU/L Alkaline Phosphatase 86 (38-126) U/L Total Protein 7.6 (6.3-8.2) g/dL Albumin 4.7 (3.5-5.0) g/dL Globulin 2.9 (1.7-4.1) g/dL Albumin/Globulin Ratio 1.6 (1.0-2.8) Lipase 64 (23-300) U/L Urine RBC 0-1/hpf (0-5/HPF) Urine WBC 1-5/hpf (0-5/HPF) Ur Squamous Epith Cells 0-1 /hpf (0-5/HPF) Amorphous Sediment 1+ Urine Bacteria Many (>30) H (None) Urine Mucus 1+ H (Negative) Ur Culture Indicated? Specimen cultured Point of care testing: Urine Dip Bedside Urine Glucose Negative Bedside Urine Bilirubin - Negative Bedside Urine Ketone +++ 80 Urine Specific Oneco 1.025 Bedside Urine Occult Blood +/- Bedside Urine pH 6.0 Bedside Urine Protein +/- 15 Bedside Urine Urobilinogen 0.2 Bedside Urine Nitrite - Negative Bedside Urine Leukocytes - Negative Esterase MDM Narrative Medical decision making narrative: Patient had low back pain which radiates around to her side that started after bending, lifting and twisting. Her symptoms regarding this portion of her complaint significantly improved after above-stated therapies. She has a large amount of gas and has had decreased appetite and bowel movements for quite some time. There is no obstruction noted on imaging. Labs are very reassuring and though she does have a slight down trend in her sodium there are no symptoms likely to be attributed to this such as dizziness, weakness or lightheadedness nor other neurologic symptoms. She has a reassuring abdominal exam and today there is no indication to repeat a CT scan. She has been given return precautions and is had questions answered to her apparent satisfaction Discharge Plan Departure Patient Disposition: Home Clinical Impression: Abdominal pain, right lower quadrant, Low back pain, Constipation Instructions: DI for Abdominal Pain-Adult, DI for Constipation Activity Restrictions/Additional Instructions: *You have been diagnosed with [ abdominal pain likely due to constipation ] *What to do: *Take over the counter medications as directed: 1. Metamucil - is a bulk forming laxative and adds fiber 2. Colace - softens your stool 3. Dulcolax suppository - stimulates your bowels 4. Magnesium Citrate - we gave you a bottle here. Please take half when you get home and if you do not have a bowel movement in 4-6 hours please take the remaining half *Follow up with your primary care provider in 2-3 days, call for appointment *Return to ER if you should have any new, worsening or concerning symp toms *Drink plenty of water and eat foods high in fiber *Stay as active as you can as this helps move your bowels as well Prescriptions: New ketorolac 10 mg tablet 10 mg PO Q6H PRN (Reason: pain) Qty: 14 0RF methylprednisolone [Medrol (Telly)] 4 mg tablets,dose pack See Rx Instructions .ROUTE .COMPLEX Qty: 21 0RF Rx Instructions: orally per package directions No Action mometasone 0.1 % solution See Rx Instructions .ROUTE .BID Qty: 30 1RF Rx Instructions: INSTILL 3 TO 4 DROPS INTO AFFECTED EARS .BID; atorvastatin [Lipitor] 40 mg tablet 40 mg PO HS Qty: 90 2RF lisinopril-hydrochlorothiazide 20-25 mg tablet 1 tab PO DAILY Qty: 90 2RF lorazepam 1 mg tablet 1 mg PO ONCE PRN (Reason: anxiety) Qty: 1 0RF Rx Instructions: TAKE 1 TABLET 1 HOUR PRIOR TO PROCEDURE/IMAGING hydrocodone-acetaminophen 5-325 mg tablet 1 tab PO Q4-6H PRN (Reason: pain) Qty: 10 0RF ondansetron 4 mg tablet,disintegrating 4 mg PO TID-QID PRN (Reason: nausea and vomiting) Qty: 10 0RF Referrals: Michel Hanson MD [Primary Care Provider] -
--- NOTE | 2021-08-28 14:45 | DI.RAD.S_ITS ---
PROCEDURE: XR ABDOMEN MIN 2V INDICATIONS: severe, worsening abdominal pain TECHNIQUE: 2 views of the abdomen were acquired. COMPARISON: [facility], CT, CT ABDOMEN PELVIS W CON, 08/26/2021, 8:12. FINDINGS: Surgical changes and devices: None. Bowel: No pneumoperitoneum. The bowel gas pattern is normal. Dilated small and large bowel. Soft tissues: No masses; visualized solid organ contours appear normal in size. No suspicious abdominal calcifications. Bones: Multilevel degenerative changes with leftward curvature. Disc space narrowing at L3 and L4-5. IMPRESSION: No acute plain film abnormality. Dictated by: Jason Munson M.D. on 08/28/2021 at 14:04 Approved by: Jason Munson M.D. on 08/28/2021 at 14:11
[2021-08-28 15:16] LABS: Add Manual Diff / Slide Review NO; Basophils Absolute Auto 100 /uL (0-100); Basophils Percent Auto 1.4 % (0-2); Eosinophils Absolute Auto 0 /uL (0-450); Eosinophils Percent Auto 0.4 % (2-4); Hematocrit 42.1 % (36-46); Hemoglobin 14.7 g/dL (12.0-16.0); Lymphocytes Absolute Auto 900 /uL (1100-4500); Mean Corpuscular HGB Conc 34.8 % (30-36); Mean Corpuscular Hemoglobin 29.2 PG (26-34); Mean Corpuscular Volume 83.8 fL (80-100); Monocytes Absolute Auto 300 /uL (0-900); Monocytes Percent Auto 3.2 % (3-14); Neutrophils Absolute Auto 9000 /uL (1500-7000); Platelet Count 289 X10^3/uL (150-400); Red Blood Cell Count 5.02 X10^6/uL (4.0-5.2); Red Cell Distribution Width 15.4 % (11.6-14.8); White Blood Cell Count 10.4 X10^3/uL (4.5-11.0)
[2021-08-28 15:26] LABS: Alanine Aminotransferase 19 IU/L (<35); Albumin 4.7 g/dL (3.5-5.0); Albumin Globulin Ratio 1.6 (1.0-2.8); Alkaline Phosphatase 86 U/L (38-126); Aspartate Aminotransferase 28 IU/L (14-36); BUN Creatinine Ratio 20.7 (6-22); Bilirubin Total 1.3 mg/dL (0.2-1.3); Blood Urea Nitrogen 19 mg/dL (7-17); Calcium 9.9 mg/dL (8.4-10.2); Carbon Dioxide 31 mmol/L (22-32); Chloride 88 mmol/L (98-107); Estimated Glomerular Filt Rate 59.8 mL/min (>60); Globulin 2.9 g/dL (1.7-4.1); Glucose 107 mg/dL (80-110); HEMOLYSIS < 15 (0-50); Lipase 64 U/L (23-300); Potassium 3.3 mmol/L (3.4-5.1); Sodium 127 mmol/L (137-145); Total Protein 7.6 g/dL (6.3-8.2)
[2021-08-28] MEDS: DEXAMETHASONE 10 MG/ML VIAL IV (15:44)
[2021-08-28] MEDS: BISACODYL 10 MG SUPP PR (15:44)
[2021-08-28] MEDS: SODIUM CHLORIDE 0.9% 1,000 ML 150 ML IV (15:44)
[2021-08-28] MEDS: KETOROLAC 30 MG/ML VIAL 15 MG IV (15:44)
[2021-08-28 16:16] LABS: Amorphous Sediment Urine 1+; Bacteria Urine Many (>30); Culture Indicated Urine Specimen Cultured; Mucus Urine 1+ (Negative); RBC Urine 0-1/HPF (0-5/HPF); Squamous Epithelial Cell Urine 0-1 /HPF (0-5/HPF); WBC Urine 1-5/HPF (0-5/HPF)
[2021-08-28] MEDS: MAGNESIUM CITRATE 300 ML SOLUTION PO (17:38)
--- NOTE | 2021-09-06 08:59 | PC.NURSE ---
LAte entry: Saline stop time 3213
== END 2021-08-28 17:56 | disposition home or self-care (01) ==
PROVIDERS: Emergency Provider Emergency Medicine; PCP Family Medicine
DX: R10.31 Right lower quadrant pain (principal); M54.50 Low back pain, unspecified; K59.00 Constipation, unspecified; I10 Essential (primary) hypertension; F17.200 Nicotine dependence, unspecified, uncomplicated
CPT/HCPCS: 36415; 74019; 80053; 81003; 81015; 83690; 85025; 87077; 87086; 87186; 96361; 96374; 96375; 99284; J1100; J1885

== ENCOUNTER → 2021-09-21 09:45 | Outpatient (CLI) | payer MEDICARE, OTHER, SELFPAY ==
--- NOTE | 2021-09-21 10:00 | DI.US.S_ITS ---
PROCEDURE: US RENAL COMPLETE INDICATIONS: Abnormal CT abdomen 08/26/21. 0.8cm mass L kidney TECHNIQUE: Real-time scanning was performed of the kidneys and bladder, with image documentation. COMPARISON: [facility], US, US ABDOMEN LIMITED, 08/26/2021, 10:25. [facility], CT, CT ABDOMEN PELVIS W CON, 08/26/2021, 8:12. FINDINGS: Kidneys: Kidneys are normal in size. Right kidney measures 11 cm long; left kidney measures 10.1 cm long. Right renal cortical thickness is 1.8 cm; left renal cortical thickness is 1.6 cm. Renal cortical echotexture is normal. No hydronephrosis or nephrolithiasis. No suspicious solid mass lesions. At the superior pole of the left kidney, there is a likely 9 mm cyst. Bladder: Pre-void bladder volume is 146 mL. Post-void residual is 0 mL. Pre-void images demonstrate no intraluminal masses or stones. On pre-void images, both ureteral jets are noted with color Doppler interrogation. (Of note, ureteral jets may not be detectable in up to 25% of cases due to insufficient differences in specific gravity between ureteral and bladder urine). Miscellaneous: No free pelvic fluid. A right adrenal mass is seen that measures 3.5 x 2.8 x 3.3 cm. IMPRESSION: At the superior pole of the left kidney, there is a likely simple cyst. A 3.5 cm right adrenal mass can again be seen. Dictated by: Tommie Sandoval M.D. on 09/21/2021 at 10:06 Approved by: Tommie Sandoval M.D. on 09/21/2021 at 10:08
== END ==
PROVIDERS: PCP Family Medicine; Referring Provider Physician Assistant; Visit Provider Physician Assistant
DX: R93.5 Abnormal findings on diagnostic imaging of other abdominal regions, including retroperitoneum (principal); E27.9 Disorder of adrenal gland, unspecified; N28.9 Disorder of kidney and ureter, unspecified
CPT/HCPCS: 76770

== ENCOUNTER → 2022-05-23 09:34 | Outpatient (CLI) | payer MEDICARE, OTHER, SELFPAY ==
--- NOTE | 2022-05-23 09:36 | DI.CT.S_ITS ---
PROCEDURE: CT CHEST WO CON INDICATIONS: left upper lung nodule TECHNIQUE: Noncontrast 2.0-2.5 mm thick sections acquired from the pulmonary apices to the posterior costophrenic angles. 7 mm thick axial MIP and 5 mm coronal and sagittal reformats were then acquired. A low radiation dose technique was utilized. COMPARISON: [facility], CT, CT CHEST WO CON, 05/11/2021, 9:36. FINDINGS: Image quality: Diagnostic, given the low radiation dose technique. Lungs and pleura: -Left upper lobe subpleural ground-glass pulmonary nodule measuring 2.3 x 1.2 cm, (3/99), previously remeasured 2.5 x 1.3 cm, and more remotely 2.1 x 1.5 cm on 02/27/2017. -Right upper lobe pulmonary nodule measuring 0.3 cm, (3/102), unchanged. Biapical pleural scarring. Left lung base calcified granuloma. A few additional calcified granuloma in the left lower lobe. No acute airspace opacity. Central airways are clear. There is minimal bronchiectasis no pleural effusion. No pneumothorax. Mediastinum: Heart size is normal. Mild coronary artery calcifications. No pericardial effusion. No mediastinal adenopathy by size criteria. Thoracic aorta and central pulmonary arteries are normal in size. Esophagus is normal in caliber. No hiatal hernia. Bones and chest wall: No suspicious bony lesions. No vertebral body compression fractures. No axillary or supraclavicular adenopathy by size criteria. Thyroid gland is unremarkable. Abdomen: Visualized upper abdomen solid organs and bowel loops appear normal in the absence of contrast. Post cholecystectomy. Right adrenal nodule measuring at 3.1 cm, (2/70), partially visualized. Remotely this measured 2.5 cm in 2017. This measures less than 10 Hounsfield units and is most consistent with a benign adenoma. IMPRESSION: 1. Left upper lobe ground-glass pulmonary nodule measuring mean diameter 1.8 cm is not significantly changed since 2017. 2. Right adrenal adenoma measuring 3.1 cm. Fleischner Society criteria for SOLID lung nodule followup. Nodule size (mm)Low-risk patientHigh-risk patient<6 (single or multiple)No routine followup.Optional CT at 12 months. 6-8 (single or multiple)CT at 6-12 months, then optional CT at 18-24 mo.CT at 6-12 months, then CT at 18-24 months. >8 (single)CT at 3 months, PET-CT, or biopsy. Same as for low-risk pts. >8 (multiple)CT at 3-6 months, then optional CT at 18-24 mo.CT at 3-6 months, then CT at 18-24 months. Fleischner Society criteria for SUB-SOLID lung nodule followup. Solitary pure ground-glass nodules<6 mm (ground glass or part solid)No followup needed. 6 mm or larger (ground glass)CT at 6-12 months to confirm persistence, then CT every 2 years until 5 years.6 mm or larger (part solid)CT at 3-6 months to confirm persistence, then annual CT until 5 years if unchanged and solid component remains <6 mm. Multiple sub-solid nodules<6 mmCT at 3-6 months, then CT consider at 2 & 4 years for high risk patients. [address] at 3-6 months. Subsequent management based on most suspicious lesions. Recommendations do not apply to lung cancer screening, patients with immunosuppression, or patients with known primary cancer. Dictated by: Linden Reed M.D. on 05/23/2022 at 10:07 Approved by: Linden Reed M.D. on 05/23/2022 at 10:18
== END ==
PROVIDERS: PCP Family Medicine; Referring Provider Family Medicine; Visit Provider Internal Medicine Hematology & Oncology
DX: R91.1 Solitary pulmonary nodule (principal); D35.02 Benign neoplasm of left adrenal gland
CPT/HCPCS: 71250

== ENCOUNTER → 2022-06-08 11:40 | Outpatient (CLI) | payer MEDICARE, OTHER, SELFPAY ==
--- NOTE | 2022-06-08 | DI.MG.S_ITS ---
BILATERAL DIGITAL SCREENING MAMMOGRAM 3D/2D WITH CAD: 06/08/2022 CLINICAL: Routine screening. Comparison is made to exams dated: 07/08/2019 mammogram, 06/06/2017 mammogram, and 06/03/2016 mammogram - [facility]. There are scattered areas of fibroglandular density in both breasts (category b / 25%-50% glandular tissue). Current study was also evaluated with a Computer Aided Detection (CAD) system. There are benign calcifications in both breasts. No significant masses, calcifications, or other findings are seen in either breast. There has been no significant interval change. IMPRESSION: BENIGN There is no mammographic evidence of malignancy. A 1 year screening mammogram is recommended. Based on the Tyrer Cuzick model (a risk assessment model) the patient's lifetime risk is 2.8% and her 10 year risk is 2.5%. According to the ACR, ACS, and NCCN guidelines, an annual breast MRI exam along with mammogram is recommended if the patient's lifetime risk is 20% or greater. This exam was interpreted at Station ID: [id number]. NOTE: For mammograms, a report in lay terms will be sent to the patient. Approximately 15% of breast malignancies will not be visualized mammographically. In the management of a palpable breast mass, a negative mammogram must not discourage biopsy of a clinically suspicious lesion. Electronically Signed By: Michel Geiger M.D., jr/grace:06/08/2022 15:48:34 letter sent: Normal Exam ACR BI-RADS Category 2: Benign Finding(s) [id number]
== END ==
PROVIDERS: PCP Family Medicine; Referring Provider Family Medicine; Visit Provider Family Medicine
DX: Z12.31 Encounter for screening mammogram for malignant neoplasm of breast (principal)
CPT/HCPCS: 77063; 77067

== ENCOUNTER → 2023-06-09 14:51 | Outpatient (CLI) | payer MEDICARE, OTHER, SELFPAY ==
--- NOTE | 2023-06-09 | DI.MG.S_ITS ---
BILATERAL DIGITAL SCREENING MAMMOGRAM 3D/2D WITH CAD: 06/09/2023 CLINICAL: Routine screening. Comparison is made to exams dated: 06/08/2022 mammogram, 07/08/2019 mammogram, 06/06/2017 mammogram, 06/03/2016 mammogram, and 05/08/2015 mammogram - [facility]. There are scattered areas of fibroglandular density in both breasts (category b / 25%-50% glandular tissue). Current study was also evaluated with a Computer Aided Detection (CAD) system. There are benign calcifications in both breasts. No significant masses, calcifications, or other findings are seen in either breast. There has been no significant interval change. IMPRESSION: BENIGN There is no mammographic evidence of malignancy. A 1 year screening mammogram is recommended. Based on the Tyrer Cuzick model (a risk assessment model) the patient's lifetime risk is 2.6% and her 10 year risk is 2.6%. According to the ACR, ACS, and NCCN guidelines, an annual breast MRI exam along with mammogram is recommended if the patient's lifetime risk is 20% or greater. This exam was interpreted at Station ID: [id number]. NOTE: For mammograms, a report in lay terms will be sent to the patient. Approximately 15% of breast malignancies will not be visualized mammographically. In the management of a palpable breast mass, a negative mammogram must not discourage biopsy of a clinically suspicious lesion. Electronically Signed By: Yonis guzman/grace:06/09/2023 18:52:45 letter sent: Normal Exam ACR BI-RADS Category 2: Benign Finding(s) [id number]
--- NOTE | 2023-06-09 14:53 | DI.CT.S_ITS ---
PROCEDURE: CT CHEST WO CON INDICATIONS: lung nodule left TECHNIQUE: Noncontrast 5 mm thick sections acquired from the pulmonary apices to the posterior costophrenic angles. 1 mm lung window, 5 mm thick coronal and sagittal and 7 mm axial MIP reformats were then acquired. For radiation dose reduction, the following was used: automated exposure control, adjustment of mA and/or kV according to patient size. COMPARISON: [facility], CT, CT CHEST WO [facility], 05/23/2022, 9:45. FINDINGS: Image quality: Good accounting for low-dose technique Lungs and pleura: Compared to CT chest dated May 23, 2022, no new or enlarging pulmonary nodules or consolidation. A few stable solid and ground-glass nodules. For example: -Left upper lobe subpleural ground-glass measures 2.2 x 1.2 cm (3/86), previously 2.3 x 1.2 cm (3/99), remotely 2.1 x 1.5 cm in 2017. -Right upper lobe solid pulmonary nodule measures 0.3 cm (3/90), previously 0.3 cm (3/102). -Left lower lobe ground-glass nodule measures 0.3 cm (3/151), previously 0.3 cm (3/166). Stable biapical pleural parenchymal scarring. A few scattered subcentimeter calcified granulomas. Mild bilateral lower lobe bronchiectasis. No acute air space opacities. No pleural effusions or pneumothorax. Central and peripheral airways are patent and normal in caliber. Mediastinum: Heart size is normal. No pericardial effusion. No mediastinal adenopathy by size criteria. Thoracic aorta and central pulmonary arteries are normal in size. Esophagus is normal in caliber. No hiatal hernia. Mild calcification of the thoracic aorta. Mild coronary vessel calcifications. Bones and chest wall: No suspicious bony lesions. No vertebral body compression fractures. No axillary or supraclavicular adenopathy by size criteria. Visualized portion is unremarkable. Abdomen: Visualized upper abdominal solid organs and bowel loops appear normal in the absence of contrast. Cholecystectomy. Partially visualized right adrenal nodule measuring at least 3.2 cm (2/66), previously 3.1 cm) with Hounsfield unit of -6 compatible with a benign adenoma. IMPRESSION: 1. Compared to CT chest dated May 23, 2022, no new or enlarging pulmonary nodules or consolidation. A few stable solid and ground-glass nodules. Left upper lobe ground-glass pulmonary nodule is stable since 2017. 2. Mild coronary vessel calcifications. 3. Right adrenal adenoma measuring 3.1 cm. Dictated by: Sridhar Ureña M.D. on 06/09/2023 at 19:19 Approved by: Sridhar Ureña M.D. on 06/09/2023 at 19:33
== END ==
PROVIDERS: PCP Family Medicine; Referring Provider Internal Medicine Hematology & Oncology; Visit Provider Internal Medicine Hematology & Oncology
DX: Z12.31 Encounter for screening mammogram for malignant neoplasm of breast (principal); R91.1 Solitary pulmonary nodule; I25.10 Atherosclerotic heart disease of native coronary artery without angina pectoris; D35.01 Benign neoplasm of right adrenal gland
CPT/HCPCS: 71250; 77063; 77067

== ENCOUNTER → 2025-07-22 16:30 | Outpatient (CLI) | payer MEDICARE, OTHER, SELFPAY ==
[2025-07-22 19:26] LABS: Influenza A - CEPHEID Flu A NEGATIVE (NEGATIVE); Influenza B - CEPHEID Flu B NEGATIVE (NEGATIVE)
[2025-07-22 19:33] LABS: COVID-19 CEPHEID 4-PLEX PCR Negative (Negative)
== END ==
PROVIDERS: PCP Family Medicine; Visit Provider Physician Assistant
DX: R05.9 Cough, unspecified (principal)
CPT/HCPCS: 87637